=== PATIENT | female | born 1940 | race Caucasian/White ===

== ENCOUNTER 2018-12-05 11:11 | Day surgery (SDC) | payer OTHER ==
--- OUTSIDE RECORDS SUMMARY | 2018-12-05 11:13 | XMS REPORT | Clinical Summary ---
:1940 Author Organization [facility] Address [address] [place] [address] Care Team Providers Name Role Phone Darin Moore MD Primary Care Provider Allergies No Known Allergies Medications Medication Sig Dispensed Refills Start Date End Date Status atorvastatin (LIPITOR) TAKE ONE (1) 1 07/26/2017 Active 20 MG tablet TABLET(S) BY MOUTH IN THE EVENING. esomeprazole (NexIUM) TAKE ONE (1) 3 06/11/2017 Active 40 MG capsule CAPSULE(S) BY MOUTH EVERY MORNING. losartan-hydrochlorothi TAKE ONE (1) 1 05/21/2017 Active azide (HYZAAR) 50-12.5 TABLET(S) BY mg per tablet MOUTH IN THE MORNING. RESTASIS MULTIDOSE 0.05 INSTILL ONE (1) 3 08/06/2017 Active % drops DROP INTO BOTH EYES TWICE A DAY. buPROPion SR TAKE ONE (1) 1 06/19/2017 Active (WELLBUTRIN SR) 150 MG TABLET(S) BY 12 hr tablet MOUTH TWICE A DAY. SUPREP BOWEL PREP KIT 1 kit 1 Bottle 0 08/10/2017 Active 17.5-3.13-1.6 gram recon soln Active Problems Problem Noted Date GERD (gastroesophageal reflux disease) Abdominal pain Family history of colonic polyps Constipation Diverticulosis Family History Medical History Relation Name Comments Colon polyps Mother Pancreatic cancer Sister Relation Name Status Comments Father Mother Sister Social History Tobacco Use Types Packs/Day Years Used Date Never Smoker Smokeless Tobacco: Never Used Alcohol Use Drinks/Week oz/Week Comments Yes Sex Assigned at Date Recorded Not on file Job Start Date Occupation Industry Not on file Not on file Not on file Travel History Travel Start Travel End No recent travel history available. Last Filed Vital Signs Not on file Plan of Treatment Health Maintenance Due Date Last Done Comments COLONOSCOPY SCREENING 1992 SHINGLES VACCINES (#1) 1992 65+ PNEUMOCOCCAL VACCINE (1 of 2 - PCV13) 11/10/2007 INFLUENZA VACCINE 12/01/2018 Results Not on fileafter 12/04/2017 Insurance Payer Benefit Plan / Subscriber ID Effective Dates Phone Address Type Group MEDICARE MEDICARE PART A xxxxxxxxxx 2007-Present [place], [place] Medicare AND B Advance Directives Patient has advance care planning documents on file. For more information, please contact:Maycol Mcdonald[address] [place] [address]
[2018-12-05] MEDS ORDERED: NS 0.9% VIAL 10 ML ONE (11:24)
[2018-12-05] MEDS ORDERED: BSS OPTHALMIC SOL 15 ML BOT OPTH ONE (11:25)
[2018-12-05] MEDS ORDERED: PHENYLEPHRINE 10% OPTH 5ML ONE (11:42)
[2018-12-05] MEDS ORDERED: NA CHLORIDE 0.9% 500 ML ONE (11:46)
[2018-12-05] MEDS ORDERED: TETRACAINE HCL 0.5% 4ML OPTH ONE (11:46)
[2018-12-05] MEDS ORDERED: BUPIVACAINE 0.25% PF 10 ML VIAL ONE (11:46)
[2018-12-05] MEDS ORDERED: CYCLOPENTOLATE 1% OPTH 2 ML ONE (11:46)
[2018-12-05] MEDS ORDERED: CYCLOPENTOLATE 1% OPTH 2 ML OPTH ONE ×2 (12:00→12:05)
[2018-12-05] MEDS ORDERED: PHENYLEPHRINE 10% OPTH 5ML OPTH ONE ×2 (12:00→12:05)
[2018-12-05] MEDS: LIDOCAINE HCL/PF 3.5% OPTH GEL ONE ×2 (12:12→12:54)
[2018-12-05] MEDS ORDERED: FENTANYL CITR 100 MCG/2 ML ONE (12:29)
[2018-12-05] MEDS ORDERED: MIDAZOLAM HCL 2 MG/2 ML INJ ONE (12:29)
[2018-12-05] MEDS ORDERED: LIDOCAINE 2% INJ, MPF 2 ML 1 ML ONE (13:04)
[2018-12-05] MEDS: LIDOCAINE 2% MPF 5 ML VIAL ONE ×2 (13:20→13:23)
[2018-12-05] MEDS: LIDOCAINE 1% MPF 2 ML AMPULE ONE ×2 (13:21→13:23)
[2018-12-05] MEDS: BALANCED SALT IRRIG PLAIN 500 ML BTL IRR ONE ×2 (13:22→13:24)
[2018-12-05] MEDS: EPINEPHRINE/PF 1 MG/ML AMP ONE ×2 (13:22→13:24)
[2018-12-05] MEDS: DUOVISC 1 KIT OPTH ONE ×2 (13:23→13:26)
[2018-12-05] MEDS: MOXIFLOXACIN HCL 10 DROPS/ML **OR USE OPTH ONE ×2 (13:24→13:26)
--- NOTE | 2018-12-05 13:49 | P.BOP ---
Preoperative diagnosis: Nuclear sclerotic cataract OD Postoperative diagnosis: Same Primary procedure: Phacoemulsification with IOL OD Estimated blood loss: None Anesthesia: Local (Topical with anesthesia for cataract surgery) Complications: None Implants: ZCB00 +28.0 Transferred to: Other (Day surgery) Condition: Good
--- NOTE | 2018-12-06 01:29 | OP ---
Date of Procedure: 12/05/2018 Surgeon: Johana Valdivia MD Anesthesiologist: Jose Rafael Goodrich CRNA and Cesar Bullard MD Preoperative Diagnosis: Nuclear sclerotic cataract, right eye. Operation Performed: Phacoemulsification with intraocular lens implant, right eye. Anesthesia: Per cataract surgery. Complications: None. Description Of Procedure: In the operating room the patient was prepped and draped in the usual ster ile fashion for ophthalmic surgery. A lid speculum was placed in the right eye. Two paracentesis si kristen were made superiorly and inferiorly in the limbal cornea. Viscoat was placed in the anterior khai mber and a crescent blade was used to make a corneal groove and tunnel, and a keratome was used to en ter the anterior chamber. Provisc was placed in the anterior chamber and a 360 degree capsulotomy wa s performed with a cystitome. The lens was hydrodissected with BSS and rotated freely. The lens was removed with a stop and chop technique. 6.12 phaco CDE was used to remove the lens. Residual catherine x was removed with the irrigation and aspiration. Provisc was placed in the capsular bag. A ZCB00 + 28.0 lens was placed in the capsular bag without complications. Irrigation and aspiration was used t o remove residual viscoelastic. The paracentesis sites were hydrated with BSS. The wound and parace ntesis sites were inspected and found to be watertight. Vigamox 0.07 cc was placed intracamerally at the end of the procedure. The eye was irrigated with balanced salt solution. The eye was patched w ith a soft cotton patch and Shaw metal shield. The patient was returned to day surgery in good condition. Comments: Akten was placed in the eye in Day Surgery and irrigated out of the eye with BSS in the OR . Preservative-free 1% lidocaine was placed in the anterior chamber prior to Viscoat. 2% Xylocaine was placed subconjunctivally prior to a temporal conjunctival incision. The incision was initiated i n the sclera. Discharge Instructions: Ms. Lawrence is discharged to home in good condition and is to follow up naseem Valdivia in the morning. YARED/FLASHL Voice ID: [id number] Report ID: [id number]
== END 2018-12-05 14:25 | disposition home or self-care (01) ==
LOC: OR 11:11
PROVIDERS: ATTEND Ophthalmology Retina Specialist
PROC: 08RJ3JZ Replacement of Right Lens with Synthetic Substitute, Percutaneous Approach (ICD-10-PCS; principal; 2018-12-05 11:30)
DX: H25.11 Age-related nuclear cataract, right eye (principal); H04.123 Dry eye syndrome of bilateral lacrimal glands; H35.30 Unspecified macular degeneration; I10 Essential (primary) hypertension; M79.7 Fibromyalgia; K21.9 Gastro-esophageal reflux disease without esophagitis; E78.00 Pure hypercholesterolemia, unspecified; I25.2 Old myocardial infarction; Z85.828 Personal history of other malignant neoplasm of skin; Z83.3 Family history of diabetes mellitus; Z82.49 Family history of ischemic heart disease and other diseases of the circulatory system
CPT/HCPCS: 66984; J0171; J2250; J3010; J2001; J3490

== ENCOUNTER 2019-05-19 18:45 | Observation (INO) | payer OTHER ==
--- NOTE | 2019-05-19 19:14 | EDPHYS ---
Physician Documentation [facility] Name: Liliam Lawrence Age: 78 yrs Sex: Female : 1940 Arrival Date: 05/19/2019 Time: 18:46 Bed 14 Private MD: Darin Moore T ED Physician Dawson Rader HPI: 05/19 19:07 This 78 yrs old Female presents to ER via Ambulatory with complaints of Chest khai Tightness, Dizziness, Weakness. 19:07 The patient or guardian reports chest pain that is located primarily in the anterior khai chest wall, bilaterally. Onset: 2 hour(s) ago. The pain radiates to both arms. Associated signs and symptoms: The patient has no apparent associated signs or symptoms. The chest pain is described as a heaviness. Modifying factors: The symptoms are alleviated by nothing. the symptoms are aggravated by nothing. Severity of pain: At its worst the pain was mild moderate in the emergency department the pain has improved markedly. The patient has experienced similar episodes in the past, a few times. Historical: - Allergies: 18:51 No Known Allergies; aj1 - PMHx: 18:51 Myocardial infarction; Fibromyalgia; Hypertension; aj1 - Immunization history:: Flu vaccine is up to date. - Social history:: Smoking status: Patient/guardian denies using tobacco. - Ebola Screening: : Patient denies travel to an Ebola-affected area in the 21 days before illness onset. - Family history:: not pertinent. ROS: 19:07 Constitutional: Negative for fever, chills, and weight loss, Eyes: Negative for injury, khai pain, redness, and discharge, ENT: Negative for injury, pain, and discharge, Neck: Negative for injury, pain, and swelling, Respiratory: Negative for shortness of breath, cough, wheezing, and pleuritic chest pain, Abdomen/GI: Negative for abdominal pain, nausea, vomiting, diarrhea, and constipation, Back: Negative for injury and pain, : Negative for injury, bleeding, discharge, and swelling, MS/Extremity: Negative for injury and deformity, Skin: Negative for injury, rash, and discoloration, Neuro: Negative for headache, weakness, numbness, tingling, and seizure, Psych: Negative for depression, anxiety, suicide ideation, homicidal ideation, and hallucinations, Allergy/Immunology: Negative for hives, rash, and allergies, Endocrine: Negative for neck swelling, polydipsia, polyuria, polyphagia, and marked weight changes, Hematologic/Lymphatic: Negative for swollen nodes, abnormal bleeding, and unusual bruising. 19:07 Cardiovascular: Positive for chest pain. Exam: 19:07 Constitutional: This is a well developed, well nourished patient who is awake, alert, khai and in no acute distress. Head/Face: Normocephalic, atraumatic. Eyes: Pupils equal round and reactive to light, extra-ocular motions intact. Lids and lashes normal. Conjunctiva and sclera are non-icteric and not injected. Cornea within normal limits. Periorbital areas with no swelling, redness, or edema. ENT: Nares patent. No nasal discharge, no septal abnormalities noted. Tympanic membranes are normal and external auditory canals are clear. Oropharynx with no redness, swelling, or masses, exudates, or evidence of obstruction, uvula midline. Mucous membranes moist. Neck: Trachea midline, no thyromegaly or masses palpated, and no cervical lymphadenopathy. Supple, full range of motion without nuchal rigidity, or vertebral point tenderness. No Meningismus. Chest/axilla: Normal chest wall appearance and motion. Nontender with no deformity. No lesions are appreciated. Respiratory: Lungs have equal breath sounds bilaterally, clear to auscultation and percussion. No rales, rhonchi or wheezes noted. No increased work of breathing, no retractions or nasal flaring. Abdomen/GI: Soft, non-tender, with normal bowel sounds. No distension or tympany. No guarding or rebound. No evidence of tenderness throughout. Back: No spinal tenderness. No costovertebral tenderness. Full range of motion. Skin: Warm, dry with normal turgor. Normal color with no rashes, no lesions, and no evidence of cellulitis. MS/ Extremity: Pulses equal, no cyanosis. Neurovascular intact. Full, normal range of motion. Neuro: Awake and alert, GCS 15, oriented to person, place, time, and situation. Cranial nerves II-XII grossly intact. Motor strength 5/5 in all extremities. Sensory grossly intact. Cerebellar exam normal. Normal gait. Psych: Awake, alert, with orientation to person, place and time. Behavior, mood, and affect are within normal limits. 19:07 Cardiovascular: Rate: normal, Rhythm: regular, Pulses: Pulses are 4+ in bilateral radial, brachial, femoral, popliteal, posterior tibial and and dorsalis pedis arteries.. Heart sounds: normal, normal S1and S2, no S3 or S4, no murmur, no rub, no gallop, JVD: is not appreciated. 19:11 Musculoskeletal/extremity: DVT Exam: No signs of deep vein thrombosis. no pain, no khai swelling, no tenderness, negative Homans' sign noted on exam, no appreciated bluish discoloration, no erythema, no increased warmth. Vital Signs: 18:51 BP 153 / 81; Pulse 105; Resp 20; Temp 97.5; Pulse Ox 100% on R/A; Weight 81.65 kg (R); aj1 Height 5 ft. 3 in. (160.02 cm) (R); Pain 6/10; 19:30 BP 155 / 80; Pulse 112; Resp 18; Pulse Ox 100% on R/A; Pain 0/10; vc 20:30 BP 148 / 80; Pulse 105; Resp 20; Pulse Ox 98% on R/A; Pain 0/10; vc 21:30 BP 160 / 91; Pulse 107; Resp 23; Pulse Ox 99% ; Pain 0/10; vc 18:51 Body Mass Index 31.89 (81.65 kg, 160.02 cm) aj1 MDM: 18:54 Patient medically screened. [facility] 19:11 Data reviewed: vital signs, nurses notes, lab test result(s), EKG, radiologic studies, [facility] plain films. 05/19 19:07 Order name: Basic Metabolic Panel; Complete Time: 20:44 [facility] 05/19 19:07 Order name: CBC with Diff; Complete Time: 20:44 [facility] 05/19 19:07 Order name: LFT's; Complete Time: 20:44 [facility] 05/19 19:07 Order name: Magnesium; Complete Time: 20:44 [facility] 05/19 19:07 Order name: NT PRO-BNP; Complete Time: 20:44 [facility] 05/19 19:07 Order name: PT-INR; Complete Time: 20:44 [facility] 05/19 19:07 Order name: Troponin (emerg Dept Use Only); Complete Time: 20:44 [facility] 05/19 19:07 Order name: Lipase; Complete Time: 20:44 [facility] 05/19 19:51 Order name: CBC Smear Scan; Complete Time: 20:44 [facility] 05/19 19:59 Order name: Basic Metabolic Panel [facility] 05/19 19:59 Order name: CBC with Automated Diff [facility] 05/19 20:00 Order name: Lipid Profile [facility] 05/19 20:00 Order name: Lipid Profile [facility] 05/19 20:00 Order name: Troponin I [facility] 05/19 19:07 Order name: XRAY Chest (1 view) [facility] 05/19 19:07 Order name: EKG; Complete Time: 19:08 [facility] 05/19 19:07 Order name: Cardiac monitoring; Complete Time: 05:39 [facility] 05/19 19:07 Order name: EKG - Nurse/Tech; Complete Time: 19:50 [facility] 05/19 19:07 Order name: IV Saline Lock; Complete Time: 05:39 [facility] 05/19 19:59 Order name: CONS Physician Consult [facility] 05/19 19:59 Order name: Heart Healthy [facility] 05/19 19:59 Order name: EKG Electrocardiogram; Complete Time: 05:38 [facility] 05/19 19:59 Order name: EKG Electrocardiogram; Complete Time: 05:38 [facility] 05/19 20:00 Order name: Troponin I [facility] 05/19 20:00 Order name: Troponin I [facility] 05/19 20:44 Order name: EKG; Complete Time: 20:44 [facility] 05/19 19:07 Order name: Labs collected and sent; Complete Time: 05:57 [facility] 05/19 19:07 Order name: O2 Per Protocol; Complete Time: 05:57 [facility] 05/19 19:07 Order name: O2 Sat Monitoring; Complete Time: 05:57 [facility] 05/19 19:07 Order name: Urine Dipstick-Ancillary (obtain specimen); Complete Time: 05:57 [facility] 05/19 20:44 Order name: EKG - Nurse/Tech; Complete Time: 21:46 [facility] Administered Medications: 19:33 Drug: Aspirin Chewable Tablet 162 mg Route: PO; vc 20:00 Follow up: Response: No adverse reaction vc 19:34 Drug: Lopressor (metoprolol TARTRATE) 50 mg Route: PO; vc 19:34 Drug: Pepcid 20 mg Route: IVP; Site: right antecubital; vc 19:34 Drug: Lovenox 80 mg Route: Sub-Q; Site: right lower abdomen; vc Disposition: 05/19/19 19:13 Hospitalization ordered by Timmy Deshpande for Inpatient Admission. Preliminary diagnosis are Chest pain, unspecified, Essential (primary) hypertension, Angina pectoris. - Bed requested for Telemetry/MedSurg (Inpatient). - Status is Inpatient Admission. vc - Condition is Stable. - Problem is new. - Symptoms have improved. UTI on Admission? No Signatures: Dispatcher [employer] EDMS Heena Norwood RN RN aj1 Rachel Cardenas RN RN dw Anderson, Corey, MD MD cha Calcote, Vanessa, RN RN vc Corrections: (The following items were deleted from the chart) 20:15 19:13 Hospitalization Ordered by Timmy Deshpande MD for Inpatient Admission. Preliminary dw diagnosis is Chest pain, unspecified; Essential (primary) hypertension; Angina pectoris. Bed requested for Telemetry/MedSurg (Inpatient). Status is Inpatient Admission. Condition is Stable. Problem is new. Symptoms have improved. UTI on Admission? No. khai 21:48 20:15 05/19/2019 19:13 Hospitalization Ordered by Timmy Deshpande MD for Inpatient vc Admission. Preliminary diagnosis is Chest pain, unspecified; Essential (primary) hypertension; Angina pectoris. Bed requested for Telemetry/MedSurg (Inpatient). Status is Inpatient Admission. Condition is Stable. Problem is new. Symptoms have improved. UTI on Admission? No. dw
--- NOTE | 2019-05-19 19:14 | ER ---
Nurse's Notes [facility] Name: Liliam Lawrence Age: 78 yrs Sex: Female : 1940 Arrival Date: 05/19/2019 Time: 18:46 Bed 14 Private MD: Darin Moore T Diagnosis: Chest pain, unspecified;Essential (primary) hypertension;Angina pectoris Presentation: 05/19 18:49 Presenting complaint: Patient states: "I'm having dizzy spells, and then I started aj1 having chest pain and half way down my arms on both sides and then I threw up and this is what happened in 2007 when I had a heart attack". Transition of care: patient was not received from another setting of care. Onset of symptoms was May 19, 2019. Risk Assessment: Do you want to hurt yourself or someone else? Patient reports no desire to harm self or others. Initial Sepsis Screen: Does the patient meet any 2 criteria? HR > 90 bpm. No. Patient's initial sepsis screen is negative. Does the patient have a suspected source of infection? No. Patient's initial sepsis screen is negative. Care prior to arrival: None. 18:49 Method Of Arrival: Ambulatory aj1 18:49 Acuity: LUIS ALBERTO 2 aj1 Triage Assessment: 18:53 General: Appears in no apparent distress. uncomfortable, Behavior is calm, cooperative, aj1 appropriate for age. Pain: Complains of pain in anterior aspect of right upper chest, anterior aspect of left upper chest, right arm and left arm Pain currently is 6 out of 10 on a pain scale. Neuro: Level of Consciousness is awake, alert, obeys commands, Oriented to person, place, time, situation. Cardiovascular: Reports chest pain, similar to previous MD Patient's skin is warm and dry. Respiratory: Airway is patent Respiratory effort is even, unlabored, Respiratory pattern is regular, symmetrical. Historical: - Allergies: 18:51 No Known Allergies; aj1 - PMHx: 18:51 Myocardial infarction; Fibromyalgia; Hypertension; aj1 - Immunization history:: Flu vaccine is up to date. - Social history:: Smoking status: Patient/guardian denies using tobacco. - Ebola Screening: : Patient denies travel to an Ebola-affected area in the 21 days before illness onset. - Family history:: not pertinent. Screenin:30 Abuse screen: Denies threats or abuse. Nutritional screening: No deficits noted. vc Tuberculosis screening: No symptoms or risk factors identified. Fall Risk Secondary diagnosis (15 points) Dizziness. Total Jensen Fall Scale indicates No Risk (0-24 pts). Assessment: 19:00 Pain: Denies pain. vc 19:30 General: Appears in no apparent distress. comfortable, Behavior is calm, cooperative, vc appropriate for age. Neuro: Level of Consciousness is awake, alert, obeys commands, Oriented to person, place, time, situation. Cardiovascular: Capillary refill < 3 seconds Patient's skin is warm and dry. Respiratory: Airway is patent Respiratory effort is even, unlabored. GI: No signs and/or symptoms were reported involving the gastrointestinal system. EENT: No signs and/or symptoms were reported regarding the EENT system. 20:00 Reassessment: Patient sitting up in bed. Friend at bedside. No requests or needs at vc this time. 20:54 Reassessment: Report given to ROMELIA Heredia. vc 21:00 Reassessment: Patient and/or family updated on plan of care and expected duration. Pain vc level reassessed. Provider at bedside. Patient denies pain at this time. 21:00 Pain: Pain radiates to left arm and right arm Pain began 1 hour ago. vc Vital Signs: 18:51 BP 153 / 81; Pulse 105; Resp 20; Temp 97.5; Pulse Ox 100% on R/A; Weight 81.65 kg (R); aj1 Height 5 ft. 3 in. (160.02 cm) (R); Pain 6/10; 19:30 BP 155 / 80; Pulse 112; Resp 18; Pulse Ox 100% on R/A; Pain 0/10; vc 20:30 BP 148 / 80; Pulse 105; Resp 20; Pulse Ox 98% on R/A; Pain 0/10; vc 21:30 BP 160 / 91; Pulse 107; Resp 23; Pulse Ox 99% ; Pain 0/10; vc 18:51 Body Mass Index 31.89 (81.65 kg, 160.02 cm) aj1 ED Course: 18:46 Patient arrived in ED. rg4 18:46 Darin Moore MD is Private Physician. rg4 18:51 Triage completed. aj1 18:51 Arm band placed on Patient placed in an exam room. aj1 18:54 Dawson Rader MD is Attending Physician. khai 18:57 Maricel Rdz RN is Primary Nurse. iw 18:58 Primary Nurse role handed off by Maricel Rdz RN vc 18:58 Neyda Huffman, ROMELIA is Primary Nurse. vc 19:12 Timmy Deshpande MD is Hospitalizing Provider. khai 19:30 parachute rigger on. Pulse ox on. NIBP on. vc 19:30 Patient has correct armband on for positive identification. Placed in gown. Bed in low vc position. Call light in reach. Side rails up X 1. 19:30 Inserted saline lock: 20 gauge in right antecubital area, using aseptic technique. vc Blood collected. 20:02 XRAY Chest (1 view) In Process Unspecified. EDMS 21:45 Patient admitted, IV remains in place. Patient maintains SpO2 saturation greater than vc 95% on room air. 21:45 No provider procedures requiring assistance completed. vc Administered Medications: 19:33 Drug: Aspirin Chewable Tablet 162 mg Route: PO; vc 20:00 Follow up: Response: No adverse reaction vc 19:34 Drug: Lopressor (metoprolol TARTRATE) 50 mg Route: PO; vc 19:34 Drug: Pepcid 20 mg Route: IVP; Site: right antecubital; vc 19:34 Drug: Lovenox 80 mg Route: Sub-Q; Site: right lower abdomen; vc Outcome: 19:13 Decision to Hospitalize by Provider. khai 21:45 Admitted to Med/surg accompanied by nurse, via wheelchair, on monitor, with chart, vc Report called to ROMELIA Heredia 21:45 Condition: good 21:45 Instructed on the need for admit. 21:48 Patient left the ED. vc Signatures: Dispatcher [employer] EDSC Heena Norwood RN RN ajDawson Gamboa MD MD cha Williams, Irene, Danika Tim RN rg4 Neyda Huffman RN RN vc Corrections: (The following items were deleted from the chart) 05/20 05:56 05:54 General: Appears in no apparent distress. comfortable, Behavior is calm, vc cooperative, appropriate for age, vc 05:56 05:54 Neuro: Level of Consciousness is awake, alert, obeys commands, Oriented to vc person, place, time, situation, vc 05: 05:54 Cardiovascular: Capillary refill < 3 seconds Patient's skin is warm and dry. vc vc 05:54 Respiratory: Airway is patent Respiratory effort is even, unlabored, vc vc 05:54 GI: No signs and/or symptoms were reported involving the gastrointestinal system. vc vc 05:54 EENT: No signs and/or symptoms were reported regarding the EENT system. vc vc
[2019-05-19] MEDS ORDERED: METOPROLOL TAR 50 MG TAB ONE (19:26)
[2019-05-19] MEDS ORDERED: ASPIRIN 81 MG CHEWABLE TABLET ONE (19:26)
[2019-05-19] MEDS ORDERED: FAMOTIDINE 20 MG/2 ML VIAL IV ONE (19:26)
[2019-05-19] MEDS ORDERED: ENOXAPARIN 80 MG/0.8 ML SQ ONE (19:26)
[2019-05-19 19:44] LABS: Absolute Lymphocytes (CBC) 0.7 K/uL (0.7-4.9); Basophils % 0.3 % (0-1.3); Hematocrit 41.5 % (36.0-45.0); Lymphocytes % 6.3 % (15.3-44.8); MPV 9.2 fL (7.6-11.3); RBC Red Blood Cell Count 4.53 M/uL (3.86-4.86)
[2019-05-19] MEDS ORDERED: MORPHINE 4 MG/ML SYR IV PRN (19:53)
[2019-05-19] MEDS ORDERED: ACETAMINOPHEN 500 MG TAB PO PRN (19:53)
[2019-05-19] MEDS ORDERED: ALPRAZOLAM 0.25 MG TABLET PO PRN (19:53)
[2019-05-19 20:01] LABS: ALT/SGPT 18 U/L (12-78); AST/SGOT 14 U/L (15-37); Albumin 3.7 g/dL (3.4-5.0); Alkaline Phosphatase 87 U/L (45-117); BUN Blood Urea Nitrogen 30 mg/dL (7-18); Bicarbonate 27 mmol/L (21-32); Bilirubin Direct < 0.1 mg/dL (0-0.2); Bilirubin Total 0.4 mg/dL (0.2-1.0); Glucose Level 102 mg/dL (74-106); Lipase 99 U/L (73-393); Magnesium 2.2 mg/dL (1.8-2.4); NT PRO-BNP 32 pg/mL (<450); Potassium 3.7 mmol/L (3.5-5.1); Protein, Total 7.2 g/dL (6.4-8.2); Sodium Level 146 mmol/L (136-145); Troponin (Emerg Dept Use Only) < 0.02 ng/mL (0.0-0.045)
[2019-05-19 20:23] LABS: Blood Morphology Comment NOT SEEN (NOT SEEN); Platelet Estimate ADEQ; Urine White Blood Cell Casts OK
--- NOTE | 2019-05-19 20:56 | RAD REPORT ---
EXAM DESCRIPTION: RAD - Chest Single View - 05/19/2019 8:01 pm CLINICAL HISTORY: Chest pain COMPARISON: July 2015 TECHNIQUE: AP portable chest image was obtained 1932 hours . FINDINGS: Chronic interstitial lung changes are present similar to comparison. No significant parenc hymal change. Heart and vasculature are normal. No measurable pleural effusion and no pneumothorax. N o acute bony abnormality seen. No acute aortic findings suspected. IMPRESSION: No acute cardiopulmonary process.
[2019-05-19 21:07] LABS: Potassium 3.7 mmol/L (3.5-5.1)
[2019-05-19 21:50] VITALS: BMI 31.6
[2019-05-19 22:17] VITALS: O2SAT 98
[2019-05-19] MEDS: METOPROLOL TAR 50 MG TAB PO SCH (22:35)
--- NOTE | 2019-05-20 04:02 | P.HP ---
Certification for Inpatient Patient admitted to: Observation With expected LOS: <2 Midnights Patient will require the following post-hospital care: None Practitioner: I am a practitioner with admitting privileges, knowledge of patient current condition, hospital course, and medical plan of care. Services: Services provided to patient in accordance with Admission requirements found in Title 42 Section 412.3 of the Code of Federal Regulations Patient History Date of Service: 05/19/19 Reason for admission: Chest pain rule out acute coronary syndrome History of Present Illness: Patient is a 78-year-old female who presents to the hospital with chest pain. Patient had pain in the sternal region and she felt a little short of breath. Patient came into the ER for further evaluation. Patient had similar complaints in 2007. At that time she was told she had an acute coronary syndrome but her Coronary angiogram did not reveal any abnormality. Patient has not had a stress test or any further cardiac workup since that time. She does have dyslipidemia. She has a family history of a brother and father with heart disease. She came into the hospital because of the chest pain and she was worked up for further evaluation. Initial troponins and EKG are negative. She will be admitted for observation. Allergies No Known Allergies Allergy (Verified 12/05/18 12:29) Home Medications: Atorvastatin Calcium [Lipitor*] 20 mg PO BEDTIME 11/29/18 Bupropion HCl [Bupropion Xl] 150 mg PO DAILY 11/29/18 Esomeprazole Mag Trihydrate [Nexium] 40 mg PO DAILY 11/29/18 Fish Oil/Borage/Flax/Om3,6,9 1 [[place] 3-6-9 1,200 mg Softgel] 1,200 mg PO DAILY 11/29/18 Losartan/Hydrochlorothiazide [Losartan-Hctz 100-12.5 mg Tab] 1 each PO [id number] 11/29/18 Magnesium Oxide [Magnesium] 500 mg PO DAILY 11/29/18 Ubidecarenone [Co Q-10] 50 mg PO DAILY 11/29/18 - Past Medical/Surgical History Has patient received pneumonia vaccine in the past: Yes Diabetic: No -: HTN -: ID -: Fibromyalgia -: Cataract SX - Family History Father Medical History: Heart disease, Hypertension Mother Medical History: Heart disease - Social History Smoking Status: Never smoker Alcohol use: Yes CD- Drugs: No Caffeine use: Yes Place of Residence: Home Review of Systems 10-point ROS is otherwise unremarkable Physical Examination - Vital Signs Temperature: 98.2 F Blood Pressure: 101/55 Pulse: 65 Respirations: 16 Pulse Ox (%): 97 - Physical Exam General: Alert, In no apparent distress, Oriented x3 HEENT: Atraumatic, PERRLA, Mucous membr. moist/pink, EOMI, Sclerae nonicteric Neck: Supple, 2+ carotid pulse no bruit, No LAD, Without JVD or thyroid abnormality Respiratory: Clear to auscultation bilaterally, Normal air movement Cardiovascular: Regular rate/rhythm, Normal S1 S2, No murmurs Gastrointestinal: Normal bowel sounds, Soft and benign, Non-distended, No tenderness Musculoskeletal: No clubbing, No swelling, No tenderness Integumentary: No rashes Neurological: Normal gait, Normal speech, Normal strength at 5/5 x4 extr, Normal tone, Sensation intact, Cranial nerves 3-12 intact, Normal affect Lymphatics: No axilla or inguinal lymphadenopathy - Studies Laboratory Data (last 24 hrs) 05/19/19 19:15: Sodium 147 H, Potassium 3.7, BUN 31 H, Creatinine 0.84, Glucose 99 05/19/19 19:15: PT 11.8, INR 1.00 05/19/19 19:15: WBC 10.8, Hgb 13.7, Hct 41.5, Plt Count 245 05/19/19 19:15: Sodium 146 H, Potassium 3.7, BUN 30 H, Creatinine 0.92, Glucose 102, Magnesium 2.2, Total Bilirubin 0.4, AST 14 L, ALT 18, Alkaline Phosphatase 87, Lipase 99 Assessment & Plan - Problems (Diagnosis) (1) Chest pain, rule out acute myocardial infarction Current Visit: Yes Status: Acute (2) Dyslipidemia Current Visit: Yes Status: Acute (3) Hypertension Current Visit: Yes Status: Acute - Plan 1. Serial troponins and EKG 2. Cardiology consultation 3. Echocardiogram and stress test if workup is negative. This can be done about patient 4. Anti-platelet therapy, anti coagulation, beta-david, statin, and O2 as needed 5. IV morphine for pain 6. Nitro p.r.n. Discharge Plan: Home Plan to discharge in: 24 Hours - Advance Directives Does patient have a Living Will: Yes Does patient have a Durable POA for Healthcare: Yes - Code Status/Comfort Care Code Status Assessed: Yes Code Status: Full Code Critical Care: No Time Spent Managing PTS Care (In Minutes): 45
[2019-05-20] MEDS ORDERED: D5 0.45 NS 1,000 ML IV SCH (05:00)
[2019-05-20 05:53] LABS: Absolute Lymphocytes (CBC) 0.7 K/uL (0.7-4.9); Basophils % 0.2 % (0-1.3); Hematocrit 37.2 % (36.0-45.0); Lymphocytes % 8.8 % (15.3-44.8); MPV 9.1 fL (7.6-11.3); RBC Red Blood Cell Count 4.09 M/uL (3.86-4.86)
[2019-05-20] MEDS ORDERED: HOME MED 1 EA UNK (Losartan/Hydrochlorothiazide [Losartan-Hctz 100-12.5 Mg Tab] 1 EACH) PO SCH (06:00)
[2019-05-20] MEDS ORDERED: hydroCHLOROthiazide 12.5 MG CAP PO SCH (06:00)
[2019-05-20] MEDS ORDERED: LOSARTAN POTASSIUM 50 MG TABLET PO SCH (06:00)
[2019-05-20] MEDS ORDERED: PANTOPRAZOLE 40MG TABLET PO SCH (06:30)
[2019-05-20] MEDS: METOPROLOL TAR 50 MG TAB PO SCH (08:53)
[2019-05-20 08:55] VITALS: BP 117/69
[2019-05-20] MEDS ORDERED: [UNRECOGNIZED DRUG - OTHER] PO SCH (09:00)
[2019-05-20] MEDS ORDERED: BORAGE PO SCH (09:00)
[2019-05-20] MEDS ORDERED: UBIDECARENONE 50 MG PO SCH (09:00)
[2019-05-20] MEDS ORDERED: HOME MED 1 EA UNK (Magnesium Oxide [Magnesium] 500 MG) PO SCH (09:00)
[2019-05-20] MEDS ORDERED: FLAX PO SCH (09:00)
[2019-05-20] MEDS ORDERED: ENOXAPARIN 40 MG/0.4 ML SQ SCH (09:00)
[2019-05-20] MEDS ORDERED: BUPROPION HCL XL 150 MG TAB PO SCH (09:00)
[2019-05-20] MEDS ORDERED: ASPIRIN EC 81 MG TAB PO SCH (09:00)
[2019-05-20] MEDS ORDERED: FISH OIL PO SCH (09:00)
[2019-05-20 09:49] VITALS: TEMP 98.5
[2019-05-20] MEDS ORDERED: ATORVASTATIN 20 MG TAB PO SCH (21:00)
--- NOTE | 2019-05-20 21:41 | P.DS ---
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 Patient had pain in the sternal region and she felt a little short of breath. Patient came into the ER for further evaluation. Patient had similar complaints in 2007. At that time she was told she had an acute coronary syndrome but her Coronary angiogram did not reveal any abnormality. Patient has not had a stress test or any further cardiac workup since that time. She does have dyslipidemia. She has a family history of a brother and father with heart disease. She came into the hospital because of the chest pain and she was worked up for further evaluation. Initial troponins and EKG are negative. She will be admitted for observation. Hospital Course: Patient was seen by Cardiology and recommendation for outpatient follow-up. Serial troponins were negative. At this time patient is stable for discharge home. Return to the ER if chest pain worsens. Vital Signs/Physical Exam: Temp Pulse Resp BP Pulse Ox 98.5 F 64 17 117/69 95 05/20/19 08:00 05/20/19 08:53 05/20/19 08:00 05/20/19 08:53 05/20/19 08:00 General: Alert, In no apparent distress, Oriented x3 Laboratory Data at Discharge: WBC 8.0 K/uL (4.3-10.9) D 05/20/19 05:18 Hgb 12.5 g/dL (12.0-15.0) 05/20/19 05:18 Hct 37.2 % (36.0-45.0) 05/20/19 05:18 Plt Count 220 K/uL (152-406) 05/20/19 05:18 PT 11.8 SECONDS (9.5-12.5) 05/19/19 19:15 INR 1.00 05/19/19 19:15 Sodium 147 mmol/L (136-145) H 05/19/19 19:15 Potassium 3.7 mmol/L (3.5-5.1) 05/19/19 19:15 BUN 31 mg/dL (7-18) H 05/19/19 19:15 Creatinine 0.84 mg/dL (0.55-1.3) 05/19/19 19:15 Glucose 99 mg/dL (74-106) 05/19/19 19:15 Magnesium 2.2 mg/dL (1.8-2.4) 05/19/19 19:15 Total Bilirubin 0.4 mg/dL (0.2-1.0) 05/19/19 19:15 AST 14 U/L (15-37) L 05/19/19 19:15 ALT 18 U/L (12-78) 05/19/19 19:15 Alkaline Phosphatase 87 U/L (45-117) 05/19/19 19:15 Troponin I < 0.02 ng/mL (0.0-0.045) 05/20/19 05:15 Triglycerides 139 mg/dL (<150) 05/20/19 05:15 Cholesterol 157 mg/dL (<200) 05/20/19 05:15 HDL Cholesterol 56 mg/dL (40-60) 05/20/19 05:15 Cholesterol/HDL Ratio 2.80 05/20/19 05:15 Lipase 99 U/L (73-393) 05/19/19 19:15 Home Medications: Atorvastatin Calcium [Lipitor*] 20 mg PO BEDTIME 11/29/18 Bupropion HCl [Bupropion Xl] 150 mg PO DAILY 11/29/18 Esomeprazole Mag Trihydrate [Nexium] 40 mg PO DAILY 11/29/18 Fish Oil/Borage/Flax/Om3,6,9 1 [[place] 3-6-9 1,200 mg Softgel] 1,200 mg PO DAILY 11/29/18 Losartan/Hydrochlorothiazide [Losartan-Hctz 100-12.5 mg Tab] 1 each PO [id number] 11/29/18 Magnesium Oxide [Magnesium] 500 mg PO DAILY 11/29/18 Ubidecarenone [Co Q-10] 50 mg PO DAILY 11/29/18 Patient Discharge Instructions: OK TO DC IV AND DC HOME. FOLLOW-UP WITH PRIMARY CARE PROVIDER IN 1-2 WEEKS. FOLLOW-UP WITH CARDIOLOGY IN 1-2 WEEKS. RETURN TO THE ER IF symptoms worsen. CALL or TEXT DR. LALA AT [phone] IF ANY QUESTIONS REGARDING HOSPITAL STAY. PLEASE CALL THE FLOOR AT [phone] IF ANY MEDICATION OR NURSING QUESTIONS. Diet: AHA Activity: Fall precautions Followup: Ben Trejo MD [ACTIVE - CAN ADMIT] - Time spent managing pt's care (in minutes): 15
--- NOTE | 2019-05-21 14:04 | EKG ---
Test Date: 2019-05-19 Test Time: 18:58:16 Scroll Assembler: GABBYT MEASUREMENT RESULTS: Intervals: Rate: 101 DC: 130 QRSD: 72 QT: 340 QTc: 440 [place]: P: 2 DC: 130 QRS: 11 T: 14 INTERPRETIVE STATEMENTS: Sinus tachycardia Otherwise normal ECG Compared to ECG 01/27/2019 12:15:37 Sinus rhythm no longer present Electronically Signed On 05-21-19 13:59:36 BUSINESS SOLUTIONS ARCHITECT by Ben Trejo
--- NOTE | 2019-05-21 20:33 | CON ---
Date of Consultation: 05/20/2019 Reason For Consultation: Chest pain. History Of Present Illness: Ms. Lawrence is 78 years old, has a history of hypertension, dyslipidemi a, gastroesophageal reflux disease, fibromyalgia. In 2007, apparently she had a myocardial infarctio n, but a catheterization showed normal coronaries. She came in with chest pain, dizziness, weakness. Chest pain went to both arms. She was vomiting. Denied PND or orthopnea, pedal edema, palpitation s, or syncope. By the time I saw her she had a normal chest x-ray, normal EKG, normal troponin, norm al BNP. Allergies: NONE. Review of Systems: Negative. Social History: Negative. Family History: Noncontributory. Medications: At home include Lipitor, lisinopril with hydrochlorothiazide, Nexium, fish oil, magnesi um, and CoQ10. Physical Examination: Vital Signs: Stable. She was afebrile. HEENT: Negative. Neck: Supple with no bruit. Chest: Clear to auscultation and percussion. Cardiac: Revealed a regular rhythm and rate. No murmurs, gallops, or rubs. Abdomen: Benign. Extremities: Revealed no clubbing, cyanosis, or edema. Neurologic: She was nonfocal. Skin: Dry and intact. Diagnostic Data: Normal. Impression And Plan: Atypical chest pain, more likely related to gastroesophageal reflux disease. I believe that her symptoms lasted about 2 to 3 hours, but I think with nausea and vomiting and weakne ss and dizziness if this was a cardiac issue would have seen some EKG changes or some troponin change s. Nevertheless, she has risk factors including her age, hypertension, dyslipidemia. She had an [place] at one point that was thought to be secondary to spasm. Nevertheless, I am comfortable with her alyssa g home. I will make arrangements for her to have an echocardiogram and a stress Cardiolite at her [facility]. Her blood pressure and dyslipidemia are fairly well controlled. ANDREA/FLASHL Voice ID: [id number] Report ID: [id number]
== END 2019-05-20 09:37 | disposition home or self-care (01) ==
LOC: ER 18:45 → ERHOLD 19:54 → 2ND 20:56
PROVIDERS: ADMIT Hospitalist; ATTEND Hospitalist
DX: R07.9 Chest pain, unspecified (principal); E78.5 Hyperlipidemia, unspecified; I10 Essential (primary) hypertension; I25.2 Old myocardial infarction
CPT/HCPCS: 93005; 85025 ×2; 80048 ×2; 36415; 83735; 85610; 80061; 80076; 84484 ×3; 83690; 83880; 71045; 96372; 96374; 99285; J1650 ×2; J7799; G0378 ×3

== ENCOUNTER 2020-10-24 17:21 | Emergency (ER) | payer OTHER ==
[2020-10-24] MEDS ORDERED: ACETAMINOPHEN 325 MG TABLET ONE (18:58)
--- NOTE | 2020-10-24 19:56 | RAD REPORT ---
EXAM DESCRIPTION: RAD - Chest Single View - 10/24/2020 7:26 pm CLINICAL HISTORY: fall, chest pain COMPARISON: May 2019 TECHNIQUE: AP portable chest image was obtained 10/24/2020 7:26 pm . FINDINGS: Lung volumes are low accentuating the interstitial pattern. No pulmonary contusion or acut e lung parenchymal process. Heart and vasculature are normal. No measurable pleural effusion and no p neumothorax. No gross rib deformity seen on limited evaluation. Left shoulder fracture changes are se parately detailed. No acute aortic findings suspected. IMPRESSION: No acute cardiopulmonary process. Left shoulder fracture changes are separately detailed.
--- NOTE | 2020-10-24 19:56 | RAD REPORT ---
EXAM DESCRIPTION: RAD - Shoulder Left 2 View - 10/24/2020 7:26 pm CLINICAL HISTORY: PAIN, trip and fall COMPARISON: No comparisons TECHNIQUE: Internal and external rotation views of the left shoulder were obtained. FINDINGS: Transverse fracture is present through the surgical neck. There is approximately 1.5 cm of medial displacement of the distal shaft fracture fragment. No dislocation of the humeral head. Nondi splaced greater tuberosity fracture is also present. AC joint is intact. Acromial humeral joint space is normal. No abnormal soft tissue calcifications. IMPRESSION: Transverse fracture at the surgical neck with 1.5 cm medial displacement of the distal f racture fragment. Nondisplaced greater tuberosity fracture.
--- NOTE | 2020-10-24 20:19 | EDPHYS ---
Physician Documentation [facility] Name: Liliam Lawrence Age: 79 yrs Sex: Female : 1940 Arrival Date: 10/24/2020 Time: 17:24 Bed 14 Private MD: ED Physician Timmy Guzman HPI: 10/24 18:28 This 79 yrs old Female presents to ER via Ambulatory with complaints of Arm jmm Injury. 18:28 The patient or guardian complains of injury, pain. Onset: The symptoms/episode jmm began/occurred acutely, just prior to arrival. Modifying factors: The symptoms are alleviated by nothing. the symptoms are aggravated by movement. This is a 79 year old female with a history of fibromyalgia, htn, mi that presents to the ED with complaints of left shoulder pain after a fall from standing position. Denies head injury. . Historical: - Allergies: 17:44 No Known Allergies; jd3 - PMHx: 17:44 Fibromyalgia; Hypertension; Myocardial infarction; jd3 - PSHx: 17:44 Breast biopsy; jd3 - Immunization history:: Adult Immunizations up to date, Client reports receiving the 2nd dose of the Covid vaccine. - Social history:: Smoking status: Patient denies any tobacco usage or history of. ROS: 18:28 Constitutional: Negative for fever, chills, and weight loss, Cardiovascular: Negative jmm for chest pain, palpitations, and edema, Respiratory: Negative for shortness of breath, cough, wheezing, and pleuritic chest pain. 18:28 MS/extremity: Positive for injury or acute deformity. 18:28 All other systems are negative. Exam: 18:28 Constitutional: This is a well developed, well nourished patient who is awake, alert, jmm and in no acute distress. Head/Face: atraumatic. Eyes: EOMI, no conjunctival erythema appreciated ENT: Moist Mucus Membranes Neck: Trachea midline, Supple Chest/axilla: Normal chest wall appearance and motion. Cardiovascular: Regular rate and rhythm. 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 18:28 Skin: Appearance: Color: normal in color. 18:28 Neuro: Orientation: is normal, Mentation: is normal, Memory: is normal. 18:28 Psych: Behavior/mood is pleasant, cooperative. Vital Signs: 17:44 BP 139 / 75; Pulse 73; Resp 17 S; Temp 97.9(TE); Pulse Ox 99% on R/A; Weight 77.11 kg jd3 (R); Height 5 ft. 4 in. (162.56 cm) (R); Pain 8/10; 17:52 BP 126 / 70; Pulse 76; Resp 16; Pulse Ox 100% on R/A; mh5 17:44 Body Mass Index 29.18 (77.11 kg, 162.56 cm) jd3 Procedures: 20:16 Splinting: Splint applied to left arm using sling, Examined by me, post splint jm application: neurovascular intact, 2+ distal pulses palpable, brisk capillary refill noted, Patient tolerated well. MDM: 18:28 Patient medically screened. [facility] 20:16 Data reviewed: vital signs, nurses notes. [facility] 20:17 Counseling: I had a detailed discussion with the patient and/or guardian regarding: the [facility] historical points, exam findings, and any diagnostic results supporting the discharge/admit diagnosis, radiology results, the need for outpatient follow up, to return to the emergency department if symptoms worsen or persist or if there are any questions or concerns that arise at home. ED course: Patient is alert and non toxic in appearance in the ED. No signs of compartments syndrome. Patient is advised to follow up with orthopedics and otherwise given strict return precautions. patient understood and agrees with the plan of care. . 10/24 18:29 Order name: Shoulder Left (2 View) XRAY; Complete Time: 20:00 [facility] 10/24 18:29 Order name: Chest Single View XRAY; Complete Time: 20:00 [facility] Administered Medications: 18:47 Drug: Tylenol 650 mg Route: PO; tr6 18:50 Not Given (Patient Refused; pt prefers something less strong): [place] tr6 (HYDROcodone-acetaminophen) 10 mg-325 mg 1 tabs PO once; RASS on ADMIN: Combtv4, Very Agttd3, Agttd2, Rstlss1, AlertClm0, Drwsy-1, Lt Sdtn-2, Mod Sdtn-3, Dp Sdtn-4, UnArsble-5 Disposition: 10/24/20 20:18 Discharged to Home. Impression: Humeral Fracture. - Condition is Stable. - Discharge Instructions: Humerus Fracture Treated With Immobilization. - Prescriptions for Tylenol- Codeine #3 300-30 mg Oral Tablet - take 1 tablet by ORAL route every 4-6 hours As needed; 20 tablet. Pepcid 20 mg Oral Tablet - take 1 tablet by ORAL route every 12 hours for 10 days; 20 tablet. - Medication Reconciliation Form, Thank You Letter, Antibiotic Education, Prescription Opioid Use form. - Follow up: Dwayne Andino MD; When: 2 - 3 days; Reason: Recheck today's complaints, Continuance of care, Re-evaluation by your physician. Signatures: Dispatcher [employer] EDMS Eduard Butler PA PA jmm Bryson, James, RN RN jb4 Bernard Lopez RN RN jd3 Karina Cardona RN RN tr6 Corrections: (The following items were deleted from the chart) 20:35 20:18 10/24/2020 20:18 Discharged to Home. Impression: Humeral Fracture. Condition is jb4 Stable. Forms are Medication Reconciliation Form, Thank You Letter, Antibiotic Education, Prescription Opioid Use. Follow up: Dwayne Andino; When: 2 - 3 days; Reason: Recheck today's complaints, Continuance of care, Re-evaluation by your physician. thai
--- NOTE | 2020-10-24 20:19 | ER ---
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 jd3 Coronavirus screen: At this time, the client does not indicate any symptoms associated with coronavirus-19. Ebola Screen: Patient negative for fever greater than or equal to 101.5 degrees Fahrenheit, and additional compatible Ebola Virus Disease symptoms. Initial Sepsis Screen: Does the patient meet any 2 criteria? No. Patient's initial sepsis screen is negative. Does the patient have a suspected source of infection? No. Patient's initial sepsis screen is negative. Risk Assessment: Do you want to hurt yourself or someone else? Patient reports no desire to harm self or others. Onset of symptoms was October 24, 2020. 17:42 Method Of Arrival: Ambulatory jd3 17:42 Acuity: LUIS ALBERTO 3 jd3 Historical: - Allergies: 17:44 No Known Allergies; jd3 - PMHx: 17:44 Fibromyalgia; Hypertension; Myocardial infarction; jd3 - PSHx: 17:44 Breast biopsy; jd3 - Immunization history:: Adult Immunizations up to date, Client reports receiving the 2nd dose of the Covid vaccine. - Social history:: Smoking status: Patient denies any tobacco usage or history of. Screenin:00 Abuse screen: Denies threats or abuse. Nutritional screening: No deficits noted. jb4 Tuberculosis screening: No symptoms or risk factors identified. Fall Risk None identified. Assessment: 20:00 General: Appears in no apparent distress. uncomfortable, Behavior is calm, cooperative, jb4 appropriate for age. Pain: Complains of pain in left arm Pain does not radiate. Pain currently is 6 out of 10 on a pain scale. Neuro: Level of Consciousness is awake, alert, obeys commands, Oriented to person, place, time, situation. Cardiovascular: Patient's skin is warm and dry. Respiratory: Airway is patent Respiratory effort is even, unlabored, Respiratory pattern is regular, symmetrical. GI: No signs and/or symptoms were reported involving the gastrointestinal system. : No signs and/or symptoms were reported regarding the genitourinary system. EENT: No signs and/or symptoms were reported regarding the EENT system. Derm: Skin is intact, Skin is pink, warm \\T\\ dry. Musculoskeletal: Circulation, motion, and sensation intact. Range of motion: intact in all extremities. 20:33 Reassessment: Patient appears in no apparent distress at this time. Patient and/or jb4 family updated on plan of care and expected duration. Pain level reassessed. Patient is alert, oriented x 3, equal unlabored respirations, skin warm/dry/pink. Vital Signs: 17:44 BP 139 / 75; Pulse 73; Resp 17 S; Temp 97.9(TE); Pulse Ox 99% on R/A; Weight 77.11 kg jd3 (R); Height 5 ft. 4 in. (162.56 cm) (R); Pain 8/10; 17:52 BP 126 / 70; Pulse 76; Resp 16; Pulse Ox 100% on R/A; mh5 17:44 Body Mass Index 29.18 (77.11 kg, 162.56 cm) jd3 ED Course: 17:24 Patient arrived in ED. ds1 17:43 Triage completed. jd3 17:45 Arm band placed on. jd3 17:47 Eduard Butler PA is PHCP. jmm 17:47 Tmimy Guzman MD is Attending Physician. jmm 17:51 Allergy band placed. Bed in low position. Call light in reach. Side rails up X 1. Pulse mh5 ox on. NIBP on. 18:06 Karina Cardona, ROMELIA is Primary Nurse. tr6 19:25 Shoulder Left (2 View) XRAY In Process Unspecified. EDMS 19:25 Chest Single View XRAY In Process Unspecified. EDMS 20:18 Dwayne Andino MD is Referral Physician. jmm 20:34 No provider procedures requiring assistance completed. Patient did not have IV access jb4 during this emergency room visit. Administered Medications: 18:47 Drug: Tylenol 650 mg Route: PO; tr6 18:50 Not Given (Patient Refused; pt prefers something less strong): [place] tr6 (HYDROcodone-acetaminophen) 10 mg-325 mg 1 tabs PO once; RASS on ADMIN: Combtv4, Very Agttd3, Agttd2, Rstlss1, AlertClm0, Drwsy-1, Lt Sdtn-2, Mod Sdtn-3, Dp Sdtn-4, UnArsble-5 Outcome: 20:18 Discharge ordered by . thai 20:34 Discharged to home via wheelchair, with friend. jb4 20:34 Condition: stable 20:34 Discharge instructions given to patient, Instructed on discharge instructions, follow up and referral plans. medication usage, Demonstrated understanding of instructions, follow-up care, medications, Prescriptions given X 2. 20:35 Patient left the ED. jb4 Signatures: Dispatcher [employer] EDMS Eduard Butler PA PA jmm [place], Demi ds1 [place] Herrera, RN RN jb4 Yolanda Santoyo Bernard Sheppard RN RN jd3 Karina Cardona RN RN tr6
[2020-10-24 21:09] VITALS: TEMP 97.9
[2020-10-24 21:10] VITALS: BP 126/70; O2SAT 100
== END 2020-10-24 20:35 | disposition home or self-care (01) ==
LOC: ER 17:21
PROC: 2W39X1Z Immobilization of Left Upper Extremity using Splint (ICD-10-PCS; principal; 2020-10-24)
DX: S42.212A Unspecified displaced fracture of surgical neck of left humerus, initial encounter for closed fracture (principal); W18.30XA Fall on same level, unspecified, initial encounter; Y93.01 Activity, walking, marching and hiking; I10 Essential (primary) hypertension
CPT/HCPCS: 71045

== ENCOUNTER 2020-10-25 10:39 | Emergency (ER) | payer OTHER ==
--- NOTE | 2020-10-25 12:41 | ER ---
Nurse's Notes [facility] Name: Liliam Lawrence Age: 79 yrs Sex: Female : 1940 Arrival Date: 10/25/2020 Time: 10:39 Bed 30 Private MD: Darin Moore T Diagnosis: Displaced fracture of neck of fifth metacarpal bone, left hand;2-part displaced fracture of surgical neck of left humerus Presentation: 10/25 11:30 Chief complaint: Patient states: fell yesterday and came in last night, broke left arm, iw now has bruising to left hand , does not see ortho til Wednesday. Coronavirus screen: At this time, the client does not indicate any symptoms associated with coronavirus-19. Ebola Screen: Patient negative for fever greater than or equal to 101.5 degrees Fahrenheit, and additional compatible Ebola Virus Disease symptoms Patient denies exposure to infectious person. Patient denies travel to an Ebola-affected area in the 21 days before illness onset. No symptoms or risks identified at this time. Initial Sepsis Screen: Does the patient meet any 2 criteria? No. Patient's initial sepsis screen is negative. Does the patient have a suspected source of infection? No. Patient's initial sepsis screen is negative. Risk Assessment: Do you want to hurt yourself or someone else? Patient reports no desire to harm self or others. Onset of symptoms was October 24, 2020. 11:30 Method Of Arrival: Ambulatory iw 11:30 Acuity: LUIS ALBERTO 4 iw Triage Assessment: 12:00 General: Appears in no apparent distress. Behavior is calm, cooperative. Injury iw Description: Bruise sustained to left hand. Historical: - Allergies: 11:32 Aspirin; iw - PMHx: 11:32 Fibromyalgia; Hypertension; Myocardial infarction; iw - PSHx: 11:32 Breast biopsy; iw - Family history:: not pertinent. Screenin:00 Abuse screen: Denies threats or abuse. Denies injuries from another. Nutritional iw screening: No deficits noted. Tuberculosis screening: No symptoms or risk factors identified. Fall Risk Fall in past 12 months (25 points). Assessment: 12:00 General: Appears in no apparent distress. Behavior is calm, cooperative. Pain: iw Complains of pain in left hand. Neuro: Level of Consciousness is awake, alert, obeys commands, Oriented to person, place, time, situation, Moves all extremities. Cardiovascular: Patient's skin is warm and dry. Respiratory: Respiratory effort is even, unlabored, Respiratory pattern is regular, symmetrical. Derm: Skin is Bruising that is dark purple, on left hand. Musculoskeletal: Range of motion: limited in left wrist. Vital Signs: 11:30 BP 139 / 74; Pulse 94; Resp 16; Temp 98.1; Pulse Ox 100% on R/A; iw ED Course: 10:39 Patient arrived in ED. am2 10:40 Darin Moore MD is Private Physician. am2 11:31 Triage completed. iw 11:38 Dawson Rader MD is Attending Physician. khai 12:00 Arm band placed on. iw 12:00 Patient has correct armband on for positive identification. iw 12:19 Maricel Rdz, RN is Primary Nurse. iw 12:20 Hand Left 3 View XRAY In Process Unspecified. EDMS 12:39 Dwayne Andino MD is Referral Physician. khai 12:41 Calvin Rojas MD is Referral Physician. khai 13:05 Orthoglass splint: Ulnar gutter/Boxer splint applied on left forearm. capillary refill dh3 <[address] Rader Sling applied to left arm. 13:20 No provider procedures requiring assistance completed. Patient did not have IV access iw during this emergency room visit. Administered Medications: 13:12 Drug: [place] (HYDROcodone-acetaminophen) (7.5 mg-325 mg) 1 tabs Route: PO; iw 13:35 Follow up: Response: No adverse reaction iw 13:12 Drug: Ondansetron 4 mg Route: PO; iw 13:30 Follow up: Response: No adverse reaction iw Outcome: 12:40 Discharge ordered by . khai 13:10 Discharged to home ambulatory. iw 13:10 Condition: good 13:10 Discharge instructions given to patient, family, Instructed on discharge instructions, follow up and referral plans. Demonstrated understanding of instructions, follow-up care. 13:12 Patient left the ED. iw Signatures: Dispatcher [employer] EDMS Dawson Rader MD MD cha Williams, Irene, RN RN Lisa Marsh am2 Verenice Johnson 3
--- NOTE | 2020-10-25 12:41 | EDPHYS ---
Physician Documentation [facility] Name: Liliam Lawrence Age: 79 yrs Sex: Female : 1940 Arrival Date: 10/25/2020 Time: 10:39 Bed 30 Private MD: Darin Moore T ED Physician Dawson Rader HPI: 10/25 12:34 This 79 yrs old Female presents to ER via Ambulatory with complaints of Arm khai Injury, Finger Injury. 12:34 The patient or guardian complains of decreased range of motion, pain, that is acute. khai The complaints affect the left hand. Context: The problem was sustained at home, resulted from a fall. Onset: The symptoms/episode began/occurred 1 day(s) ago. Treatment prior to arrival includes: elevation of the extremity. Modifying factors: The symptoms are alleviated by remaining still, the symptoms are aggravated by movement, bending arm. Associated signs and symptoms: The patient has no apparent associated signs or symptoms. Severity of symptoms: At their worst the symptoms were mild, moderate, in the emergency department the symptoms are unchanged. The patient has not experienced similar symptoms in the past. Historical: - Allergies: 11:32 Aspirin; iw - PMHx: 11:32 Fibromyalgia; Hypertension; Myocardial infarction; iw - PSHx: 11:32 Breast biopsy; iw - Family history:: not pertinent. ROS: 12:34 Constitutional: Negative for fever, chills, and weight loss, Eyes: Negative for injury, khai pain, redness, and discharge, ENT: Negative for injury, pain, and discharge, Neck: Negative for injury, pain, and swelling, Cardiovascular: Negative for chest pain, palpitations, and edema, Respiratory: Negative for shortness of breath, cough, wheezing, and pleuritic chest pain, Abdomen/GI: Negative for abdominal pain, nausea, vomiting, diarrhea, and constipation, Back: Negative for injury and pain, : Negative for injury, bleeding, discharge, and swelling, Skin: Negative for injury, rash, and discoloration, Neuro: Negative for headache, weakness, numbness, tingling, and seizure, Psych: Negative for depression, anxiety, suicide ideation, homicidal ideation, and hallucinations, Allergy/Immunology: Negative for hives, rash, and allergies, Endocrine: Negative for neck swelling, polydipsia, polyuria, polyphagia, and marked weight changes, Hematologic/Lymphatic: Negative for swollen nodes, abnormal bleeding, and unusual bruising. 12:34 MS/extremity: Positive for decreased range of motion, pain, swelling, of the outer aspect of right palm. Exam: 12:34 Constitutional: This is a well developed, well nourished patient who is awake, alert, khai and in no acute distress. Head/Face: Normocephalic, atraumatic. Eyes: Pupils equal round and reactive to light, extra-ocular motions intact. Lids and lashes normal. Conjunctiva and sclera are non-icteric and not injected. Cornea within normal limits. Periorbital areas with no swelling, redness, or edema. ENT: Nares patent. No nasal discharge, no septal abnormalities noted. Tympanic membranes are normal and external auditory canals are clear. Oropharynx with no redness, swelling, or masses, exudates, or evidence of obstruction, uvula midline. Mucous membranes moist. Neck: Trachea midline, no thyromegaly or masses palpated, and no cervical lymphadenopathy. Supple, full range of motion without nuchal rigidity, or vertebral point tenderness. No Meningismus. Chest/axilla: Normal chest wall appearance and motion. Nontender with no deformity. No lesions are appreciated. Cardiovascular: Regular rate and rhythm with a normal S1 and S2. No gallops, murmurs, or rubs. Normal PMI, no JVD. No pulse deficits. Respiratory: Lungs have equal breath sounds bilaterally, clear to auscultation and percussion. No rales, rhonchi or wheezes noted. No increased work of breathing, no retractions or nasal flaring. Abdomen/GI: Soft, non-tender, with normal bowel sounds. No distension or tympany. No guarding or rebound. No evidence of tenderness throughout. Back: No spinal tenderness. No costovertebral tenderness. Full range of motion. Skin: Warm, dry with normal turgor. Normal color with no rashes, no lesions, and no evidence of cellulitis. Neuro: Awake and alert, GCS 15, oriented to person, place, time, and situation. Cranial nerves II-XII grossly intact. Motor strength 5/5 in all extremities. Sensory grossly intact. Cerebellar exam normal. Normal gait. Psych: Awake, alert, with orientation to person, place and time. Behavior, mood, and affect are within normal limits. 12:34 Musculoskeletal/extremity: Extremities: grossly normal except: noted in the dorsum of right hand and outer aspect of right palm: decreased ROM, deformity, ecchymosis, pain, ROM: no acute changes, intact in all extremities, Circulation is intact in all extremities. the dorsum of left hand and inner aspect of left palm Compartment Syndrome exam of affected extremity: is normal. Joints: All joints appear normal with full range of motion. Tendon exam: specific tendon testing normal through active and passive range of motion Vital Signs: 11:30 BP 139 / 74; Pulse 94; Resp 16; Temp 98.1; Pulse Ox 100% on R/A; iw MDM: 11:38 Patient medically screened. [facility] 12:34 Differential diagnosis: open fracture, contusion, tendonitis. Data reviewed: [facility] signs, nurses notes, radiologic studies, plain films. Data interpreted: clerk of scales: rate is 94 beats/min, rhythm is regular, Pulse oximetry: on room air is 100 %. Test interpretation: by ED physician or midlevel provider: plain radiologic studies. Counseling: I had a detailed discussion with the patient and/or guardian regarding: the historical points, exam findings, and any diagnostic results supporting the discharge/admit diagnosis, radiology results. 10/25 11:40 Order name: Hand Left 3 View XRAY [facility] 10/25 11:40 Order name: Ice pack; Complete Time: 07:12 [facility] 10/25 12:33 Order name: Splint - Ulnar Gutter; Complete Time: 13:06 [facility] Administered Medications: 13:12 Drug: [place] (HYDROcodone-acetaminophen) (7.5 mg-325 mg) 1 tabs Route: PO; iw 13:35 Follow up: Response: No adverse reaction iw 13:12 Drug: Ondansetron 4 mg Route: PO; iw 13:30 Follow up: Response: No adverse reaction Disposition: 10/25/20 12:40 Discharged to Home. Impression: Displaced fracture of neck of fifth metacarpal bone, left hand, 2-part displaced fracture of surgical neck of left humerus. - Condition is Stable. - Discharge Instructions: Metacarpal Fracture, Fall Prevention in the Home, Humerus Fracture Treated With Immobilization, Humerus Fracture Treated With Immobilization, Xcif-ix-Cucd, Metacarpal Fracture, [id number]-[id number], Fall Prevention in the Home, [id number]. - Medication Reconciliation Form, Thank You Letter, Antibiotic Education, Prescription Opioid Use form. - Follow up: Dwayne Andino MD; When: 2 - 3 days; Reason: Recheck today's complaints, Continuance of care, Re-evaluation by your physician. Follow up: Calvin Rojas MD; When: 2 - 3 days; Reason: Recheck today's complaints, Re-evaluation by your physician. - Problem is new. - Symptoms have improved. Signatures: Dispatcher [employer] EDDawson Fu MD MD cha Williams, Irene, RN RN iw Corrections: (The following items were deleted from the chart) 12:42 12:40 10/25/2020 12:40 Discharged to Home. Impression: Displaced fracture of neck of khai fifth metacarpal bone, left hand; 2-part displaced fracture of surgical neck of left humerus. Condition is Stable. Forms are Medication Reconciliation Form, Thank You Letter, Antibiotic Education, Prescription Opioid Use. Follow up: Dwayne Andino; When: 2 - 3 days; Reason: Recheck today's complaints, Continuance of care, Re-evaluation by your physician. Problem is new. Symptoms have improved. [facility] 13:12 12:42 10/25/2020 12:40 Discharged to Home. Impression: Displaced fracture of neck of iw fifth metacarpal bone, left hand; 2-part displaced fracture of surgical neck of left humerus. Condition is Stable. Discharge Instructions: Metacarpal Fracture, Fall Prevention in the Home, Humerus Fracture Treated With Immobilization, Humerus Fracture Treated With Immobilization, Xrcy-[id number], Metacarpal Fracture, Nono-hn-Cdzj, Fall Prevention in the Home, Vtvb-lt-Rtui. Forms are Medication Reconciliation Form, Thank You Letter, Antibiotic Education, Prescription Opioid Use. Follow up: Dwayne Andino; When: 2 - 3 days; Reason: Recheck today's complaints, Continuance of care, Re-evaluation by your physician. Follow up: Calvin Rojas; When: 2 - 3 days; Reason: Recheck today's complaints, Re-evaluation by your physician. Problem is new. Symptoms have improved. khai
--- NOTE | 2020-10-25 12:59 | RAD REPORT ---
EXAM DESCRIPTION: RAD -Hand Left 3 View - 10/25/2020 12:20 pm CLINICAL HISTORY: Left hand pain status post injury FINDINGS: Nondisplaced fracture involves the fifth metacarpal neck. No dislocation Bones are osteoporotic
[2020-10-25 13:17] VITALS: BP 139/74; TEMP 98.1; O2SAT 100
[2020-10-25] MEDS ORDERED: ONDANSETRON 4 MG (ODT) TAB ONE (13:28)
[2020-10-25] MEDS ORDERED: HYDROCODONE/APAP 7.5/325 MG TAB ONE (13:28)
== END 2020-10-25 13:12 | disposition home or self-care (01) ==
LOC: ER 10:39
PROC: 2W3DX1Z Immobilization of Left Lower Arm using Splint (ICD-10-PCS; principal; 2020-10-25)
DX: S62.367A Nondisplaced fracture of neck of fifth metacarpal bone, left hand, initial encounter for closed fracture (principal); S42.222A 2-part displaced fracture of surgical neck of left humerus, initial encounter for closed fracture; W19.XXXA Unspecified fall, initial encounter; Y92.009 Unspecified place in unspecified non-institutional (private) residence as the place of occurrence of the external cause; I10 Essential (primary) hypertension; Z88.6 Allergy status to analgesic agent

== ENCOUNTER 2023-03-30 01:11 | Emergency (ER) | payer OTHER ==
[2023-03-30] MEDS ORDERED: HYDROCODONE/APAP 5/325 MG TAB ONE ×2 (02:06→02:07)
[2023-03-30] MEDS ORDERED: IBUPROFEN 200 MG TAB PO ONE (02:07)
[2023-03-30] MEDS ORDERED: methocarbamoL 750 MG TAB ONE (02:07)
--- NOTE | 2023-03-30 04:21 | ER ---
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 NOW HAVING BACK PAIN. Coronavirus screen: At this time, the client does not indicate any symptoms associated with coronavirus-19. Ebola Screen: No symptoms or risks identified at this time. Initial Sepsis Screen: Does the patient meet any 2 criteria? No. Patient's initial sepsis screen is negative. Does the patient have a suspected source of infection? No. Patient's initial sepsis screen is negative. Risk Assessment: Do you want to hurt yourself or someone else? Patient reports no desire to harm self or others. Onset of symptoms was March 30, 2023. 01:13 Method Of Arrival: EMS: [facility] jj7 01:13 Acuity: LUIS ALBERTO 4 jj7 Triage Assessment: 01:18 General: Appears in no apparent distress. uncomfortable, Behavior is calm, cooperative, jj7 appropriate for age. Pain: Complains of pain in back. Historical: - Allergies: 01:18 Aspirin; jj7 - PMHx: 01:18 Fibromyalgia; Hypertension; Myocardial infarction; jj7 - PSHx: 01:18 hysterectomy (Myocardial infarction); jj7 - Immunization history:: Adult Immunizations up to date. - Social history:: Smoking status: Patient denies any tobacco usage or history of. Patient/guardian denies using alcohol, street drugs. - Family history:: not pertinent. Screenin:31 [facility] ED Fall Risk Assessment (Adult) History of falling in the last 3 months, jj7 including since admission No falls in past 3 months (0 pts) Confusion or Disorientation No (0 pts) Intoxicated or Sedated No (0 pts) Impaired Gait No (0 pts) Mobility Assist Device Used No (0 pt) Altered Elimination No (0 pt) Score/Fall Risk Level 0 - 2 = Low Risk Oriented to surroundings, Maintained a safe environment. Abuse screen: Denies threats or abuse. Nutritional screening: No deficits noted. Tuberculosis screening: No symptoms or risk factors identified. Assessment: 01:31 Reassessment: SEE TRIAGE ASSESSMENT. jj7 02:30 Reassessment: eyes closed. Respiratory: Airway is patent Respiratory effort is even, ha1 unlabored, Respiratory pattern is regular, symmetrical. 03:21 Reassessment: eyes closed. Respiratory: Airway is patent Respiratory effort is even, ha1 unlabored, Respiratory pattern is regular, symmetrical. 04:30 Reassessment: Patient and/or family updated on plan of care and expected duration. Pain ha1 level reassessed. Patient is alert, oriented x 3, equal unlabored respirations, skin warm/dry/pink. Vital Signs: 01:13 BP 165 / 67; Pulse 83; Resp 18; Temp 97.5; Pulse Ox 100% ; Weight 82.1 kg; Height 5 ft. jj7 4 in. ; Pain 7/10; 02:30 BP 123 / 86; Pulse 82; Resp 17 S; Pulse Ox 100% on R/A; ha1 03:30 BP 164 / 75; Pulse 71; Resp 18 S; Pulse Ox 95% on R/A; ha1 04:45 BP 148 / 64; Pulse 73; Resp 18 S; Pulse Ox 95% on R/A; ha1 01:13 Body Mass Index 31.07 (82.10 kg, 162.56 cm) jj7 01:13 Pain Scale: Adult jj7 ED Course: 01:13 Patient arrived in ED. jj7 01:13 José Norwood RN is Primary Nurse. jj7 01:17 Jaleel Weaver MD is Attending Physician. sp4 01:18 Triage completed. jj7 01:18 Arm band placed on right wrist. Patient placed in an exam room, on a stretcher. jj7 01:31 Patient has correct armband on for positive identification. Bed in low position. Call jj7 light in reach. Warm blanket given. 02:22 CT Lumbar Spine Wo Con In Process Unspecified. EDMS 04:48 No provider procedures requiring assistance completed. Patient did not have IV access jj7 during this emergency room visit. Administered Medications: 01:57 Drug: HYDROcodone-acetaminophen PO 5 mg-325 mg 2 tabs PO once Route: PO; jj7 04:48 Follow up: Response: Marked relief of symptoms jj7 01:57 Drug: Methocarbamol PO 750 mg PO once Route: PO; jj7 04:47 Follow up: Response: Marked relief of symptoms jj7 01:57 Drug: Ibuprofen PO 600 mg PO once Route: PO; jj7 04:46 Follow up: Response: Marked relief of symptoms jj7 Medication: 01:31 VIS not applicable for this client. jj7 Outcome: 04:21 Discharge ordered by MD. loera 04:48 Discharged to home ambulatory, jj7 04:48 Condition: improved 04:48 Discharge instructions given to patient, Instructed on discharge instructions, medication usage, Demonstrated understanding of instructions, medications, Prescriptions given X 3, 04:49 Patient left the ED. jj7 Signatures: Dispatcher [employer] EDMS Ashlyn Charles RN RN ha1 José Norwood RN RN jj7 Jaleel Weaver MD MD sp4 Corrections: (The following items were deleted from the chart) 01:27 01:18 PSHx: hysterectomy (Myocardial infarction); jj7 jj7
--- NOTE | 2023-03-30 04:21 | EDPHYS ---
Physician Documentation [facility] Name: Liliam Lawrence Age: 82 yrs Sex: Female : 1940 Arrival Date: 03/30/2023 Time: 01:11 Bed 6 Private MD: ED Physician Jaleel Weaver HPI: 03/30 01:17 This 82 yrs old Female presents to ER via Unassigned with complaints of back sp4 pain . 04:16 Patient presents with EMS with right lower back pain with radiation into the right sp4 buttock after she pulled up on a heavy container of dog food. Patient arrived with EMS with moderate to severe right-sided lower back pain with radiation into the right buttock. . Historical: - Allergies: 01:18 Aspirin; jj7 - PMHx: 01:18 Fibromyalgia; Hypertension; Myocardial infarction; jj7 - PSHx: 01:18 hysterectomy (Myocardial infarction); jj7 - Immunization history:: Adult Immunizations up to date. - Social history:: Smoking status: Patient denies any tobacco usage or history of. Patient/guardian denies using alcohol, street drugs. - Family history:: not pertinent. ROS: 04:16 Constitutional: Negative for fever, chills, and weight loss, Back: Positive for back sp4 sprain and back pain 04:16 All other systems are negative, Exam: 04:16 Constitutional: This is a well developed, well nourished patient who is awake, alert, sp4 and in no acute distress. Head/Face: Normocephalic, atraumatic. Eyes: Pupils equal round and reactive to light, extra-ocular motions intact. Lids and lashes normal. Conjunctiva and sclera are not injected. Cornea within normal limits. Periorbital areas with no swelling, redness, or edema. ENT: Nares patent. No nasal discharge, no septal abnormalities noted. Tympanic membranes are normal and external auditory canals are clear. Oropharynx with no redness, swelling, or masses, exudates, or evidence of obstruction, uvula midline. Mucous membranes moist. Neck: Trachea midline, no thyromegaly or masses palpated, and no cervical lymphadenopathy. Supple, full range of motion without nuchal rigidity, or vertebral point tenderness. Chest/axilla: Normal chest wall appearance and motion. Nontender with no deformity. No lesions are appreciated. Cardiovascular: Regular rate and rhythm with a normal S1 and S2. No gallops, murmurs, or rubs. Normal PMI, no JVD. No pulse deficits. Respiratory: Lungs have equal breath sounds bilaterally, clear to auscultation and percussion. No rales, rhonchi or wheezes noted. No increased work of breathing, no retractions or nasal flaring. Abdomen/GI: Soft, non-tender, with normal bowel sounds. No distension or tympany. No guarding or rebound. No evidence of tenderness throughout. Back: No spinal tenderness. No costovertebral tenderness. Skin: Warm, dry with normal turgor. Normal color with no rashes, no lesions, and no evidence of cellulitis. MS/ Extremity: Pulses equal, no cyanosis. Neurovascular intact. Full, normal range of motion. Neuro: Awake and alert, GCS 15, oriented to person, place, time, and situation. Cranial nerves II-XII grossly intact. Motor strength 5/5 in all extremities. Sensory grossly intact. Psych: Awake, alert, with orientation to person, place and time. Behavior, mood, and affect are within normal limits Vital Signs: 01:13 BP 165 / 67; Pulse 83; Resp 18; Temp 97.5; Pulse Ox 100% ; Weight 82.1 kg; Height 5 ft. jj7 4 in. ; Pain 7/10; 02:30 BP 123 / 86; Pulse 82; Resp 17 S; Pulse Ox 100% on R/A; ha1 03:30 BP 164 / 75; Pulse 71; Resp 18 S; Pulse Ox 95% on R/A; ha1 04:45 BP 148 / 64; Pulse 73; Resp 18 S; Pulse Ox 95% on R/A; ha1 01:13 Body Mass Index 31.07 (82.10 kg, 162.56 cm) jj7 01:13 Pain Scale: Adult jj7 MDM: 01:18 Patient medically screened. sp4 04:09 ED course: CT - TECHNIQUE: Axial computed tomography images of the lumbar spine without sp4 intravenous contrast. Sagittal and coronal reformatted images were created and reviewed. This CT exam was performed using one or more of the following dose reduction techniques: automated exposure control, adjustment of the mA and/or kV according to patient size, and/or use of iterative reconstruction technique. COMPARISON: No relevant prior studies available. FINDINGS: Vertebrae: There are 5 nonrib-bearing lumbar-type vertebral bodies. No acute fracture or subluxation. L2 intraosseous hemangioma. Discs/spinal canal/neural foramina: Mild to moderate degenerative changes most pronounced at L4-L5. No canal stenosis. Soft tissues: Unremarkable. Kidneys and ureters: Mild right hydroureteronephrosis with perinephric and periureteral stranding. IMPRESSION: 1. No acute injury. 2. Mild right hydroureteronephrosis with perinephric and periureteral stranding. A recently passed or distal obstructing calculus may be considered. Please correlate clinically for urinary tract infection. . ED course: CT impression - FINDINGS: Vertebrae: There are 5 nonrib-bearing lumbar-type vertebral bodies. No acute fracture or subluxation. L2 intraosseous hemangioma. Discs/spinal canal/neural foramina: Mild to moderate degenerative changes most pronounced at L4-L5. No canal stenosis. Soft tissues: Unremarkable. Kidneys and ureters: Mild right hydroureteronephrosis with perinephric and periureteral stranding. IMPRESSION: 1. No acute injury. 2. Mild right hydroureteronephrosis with perinephric and periureteral stranding. A recently passed or distal obstructing calculus may be considered. Please correlate clinically for urinary tract infection. . 04:16 Differential Diagnosis altered mental status, sepsis, flu. Data reviewed: vital signs, sp4 nurses notes, EMS record, old medical records, radiologic studies, CT scan. Consideration of Admission/Observation Escalation of care including admission/observation considered. ED course: Patient improved after medications. Will advise bedrest and acute medications. 3 days. 03/30 01:27 Order name: CT Lumbar Spine Wo Con sp4 Administered Medications: 01:57 Drug: HYDROcodone-acetaminophen PO 5 mg-325 mg 2 tabs PO once Route: PO; jj7 04:48 Follow up: Response: Marked relief of symptoms jj7 01:57 Drug: Methocarbamol PO 750 mg PO once Route: PO; jj7 04:47 Follow up: Response: Marked relief of symptoms jj7 01:57 Drug: Ibuprofen PO 600 mg PO once Route: PO; jj7 04:46 Follow up: Response: Marked relief of symptoms jj7 Disposition Summary: 03/30/23 04:21 Discharge Ordered Notes: Location: Home sp4 Problem: new sp4 Symptoms: have improved sp4 Condition: Stable sp4 Diagnosis - Sprain of other parts of lumbar spine and pelvis sp4 Followup: sp4 - With: Private Physician - When: 5 - 6 days - Reason: Recheck today's complaints Discharge Instructions: - Discharge Summary Sheet sp4 - Low Back Sprain or Strain Rehab sp4 Forms: - Patient Portal Instructions sp4 Prescriptions: - Ibuprofen 600 mg Oral Tablet - take 1 tablet ORAL route every 6 hours As needed take with food; 30 tablet; sp4 Refills: 0, Product Selection Permitted - Tramadol 50 mg Oral tablet - take 1 tablet ORAL route every 8 hours as needed; 20 tablet; Refills: 0, sp4 Product Selection Permitted - methocarbamol 750 mg Oral tablet - take 1 tablet ORAL route every 6 hours for 2 days PRN muscle soreness; 30 sp4 tablet; Refills: 0, Product Selection Permitted Signatures: Dispatcher [employer] José Marie RN RN jj7 Jaleel Weaver MD MD sp4 Corrections: (The following items were deleted from the chart) 01:27 01:18 PSHx: hysterectomy (Myocardial infarction); jj7 jj7
[2023-03-30 04:54] VITALS: TEMP 97.5
[2023-03-30 04:56] VITALS: O2SAT 95
[2023-03-30 04:58] VITALS: BP 148/64
--- NOTE | 2023-03-30 19:18 | RAD REPORT ---
EXAM DESCRIPTION: CT - Spine Lumbar Wo Con - 03/30/2023 2:20 am CLINICAL HISTORY: Acute back pain TECHNIQUE: Axial computed tomography images of the lumbar spine without intravenous contrast. Sagi ttal and coronal reformatted images were created and reviewed. This CT exam was performed using one or more of the following dose reduction techniques: automated exposure control, adjustment of the mA and/or kV according to patient size, and/or use of iterative reconstruction technique. COMPARISON: No relevant prior studies available. FINDINGS: Vertebrae: There are 5 nonrib-bearing lumbar-type vertebral bodies. No acute fracture or subluxation. L2 intraosseous hemangioma. Discs/spinal canal/neural foramina: Mild to moderate degenerative changes most pronounced at L4-L5. No canal stenosis. Soft tissues: Unremarkable. Kidneys and ureters: Mild right hydroureteronephrosis with perinephric and periureteral stranding. IMPRESSION: 1. No acute injury. 2. Mild right hydroureteronephrosis with perinephric and periureteral stranding. A recently passe d or distal obstructing calculus may be considered. Please correlate clinically for urinary tract inf ection. Electronically signed by: Gabi Espinal MD 03/30/2023 02:52 AM [employer] Due to temporary technical issues with the PACS/Fluency reporting system, reports are being signed by the in house radiologists without review as a courtesy to insure prompt reporting. The interpreting radiologist is fully responsible for the content of the
== END 2023-03-30 04:49 | disposition home or self-care (01) ==
LOC: ER 01:11
DX: S33.5XXA Sprain of ligaments of lumbar spine, initial encounter (principal); Z88.6 Allergy status to analgesic agent
CPT/HCPCS: 72131; 99284